=== PATIENT | female | born 1980 | race Caucasian/White ===

== ENCOUNTER 2017-07-25 04:50 | Emergency (ER) | payer SELFPAY ==
--- NOTE | 2017-07-25 04:56 | PDOC ---
History of Present Illness - General Chief Complaint: Injury Stated Complaint: LEFT ANKLE PAIN Time Seen by Provider: 07/25/17 04:55 Past History - Past Medical History Allergies/Adverse Reactions: Allergies Allergy/AdvReac Type Severity Reaction Status Date / Time No Known Allergies Allergy Verified 07/25/17 04:52 Home Medications: Ambulatory Orders Oxycodone HCl/Acetaminophen [Percocet 5/325 -] 1 tab PO Q6H #20 tablet MDD 4 Asthma: No Cancer: No Cardiac Disorders: No Diabetes: No HTN: No Seizures: No Thyroid Disease: No - Immunization History Td Vaccination: Yes Immunization Up to Date: Yes - Suicide/Smoking/Psychosocial Hx Smoking Status: Yes Smoking History: Current every day smoker Have you smoked in the past 12 months: Yes Number of Cigarettes Smoked Daily: 4 'Breaking Loose' booklet given: 09/29/14 Hx Alcohol Use: No Drug/Substance Use Hx: No Substance Use Type: None Hx Substance Use Treatment: No Medical Decision Making - Medical Decision Making 07/25/17 06:13 Patient Name: DORY SPIVEY THIS IS A PRELIMINARY REPORT FROM [facility] DATE OF SERVICE: 2017-07-25 05:26:17 IMAGES: 6 EXAM: XR LEFT ANKLE / XR LEFT FOOT HISTORY:Injury COMPARISON: None. FINDINGS:X-ray left ankle: The bones, joints and soft tissues are normal. X-ray left foot: The bones, joints and soft tissues are normal. IMPRESSION: Normal left ankle. Normal left foot *DC/Admit/Observation/Transfer Diagnosis at time of Disposition: High ankle sprain of left lower extremity, Sprain of foot, left - Discharge Dispostion Disposition: HOME Condition at time of disposition: Stable Admit: No - Prescriptions Prescriptions: Oxycodone HCl/Acetaminophen [Percocet 5/325 -] 1 tab PO Q6H #20 tablet MDD 4 - Referrals Referrals: Derek May MD [Staff Physician] - - Patient Instructions Printed Discharge Instructions: DI for Ankle Sprain - Post Discharge Activity Forms/Work/School Notes: Back to Work
[2017-07-25 05:01] VITALS: BP 117/67; PULSE 83; TEMP 98.2; BMI 41.9
[2017-07-25] MEDS ORDERED: IBUPROFEN 600 MG TABLET (FP) PO ONE ×2 (05:05→05:20)
== END 2017-07-25 06:24 | disposition home or self-care (01) ==
LOC: FER 04:50
DX: S93.402A Sprain of unspecified ligament of left ankle, initial encounter (principal); X58.XXXA Exposure to other specified factors, initial encounter; Y93.9 Activity, unspecified; Y92.9 Unspecified place or not applicable; S93.602A Unspecified sprain of left foot, initial encounter; F17.210 Nicotine dependence, cigarettes, uncomplicated
CPT/HCPCS: 73610-TC-LT; 73630-TC-LT; 99282-25

== ENCOUNTER 2017-08-19 03:31 | Emergency (ER) | payer BC ==
[2017-08-19 03:36] VITALS: BP 108/61; PULSE 96; TEMP 97.9; BMI 39.5
[2017-08-19] MEDS ORDERED: SODIUM CHLORIDE 1,000 ML IV STA (03:37)
[2017-08-19] MEDS ORDERED: KETOROLAC TROMETHAMINE 30 MG/1 ML VIAL IVPUSH ONE (03:37)
[2017-08-19] MEDS ORDERED: DEXAMETHASONE SOD PHOSPHATE 10 MG/1 ML VIAL IVPUSH ONE (03:38)
--- NOTE | 2017-08-19 03:43 | PDOC ---
History of Present Illness - General Chief Complaint: Sore Throat Stated Complaint: SORE THROAT/FEVER Time Seen by Provider: 08/19/17 03:35 - History of Present Illness Initial Comments: 08/19/17 03:39 37 F with no PMH presents to ER with 3 days of sore throat and fevers. She states that symptoms began with sore throat. She eventually developed fevers and chills. Today, she states that her throat has become so painful that it is difficult to swallow. She denies any difficulty breathing or sensation of throat closing up. However, she does state that her voice has become hoarse from coughing. Pt denies any other symptoms such as CP/SOB. Denies N/V/D/ abdominal pain. No known sick contacts. Past History - Past Medical History Allergies/Adverse Reactions: Allergies Allergy/AdvReac Type Severity Reaction Status Date / Time No Known Allergies Allergy Verified 07/25/17 04:52 Home Medications: Ambulatory Orders Amoxicillin - [Amoxicillin 500mg Capsule -] 500 mg PO BID #20 capsule 08/19/17 Asthma: No Cancer: No Cardiac Disorders: No COPD: Yes Diabetes: No HTN: No Seizures: No Thyroid Disease: No - Immunization History Td Vaccination: Yes Immunization Up to Date: Yes - Suicide/Smoking/Psychosocial Hx Smoking Status: Yes Smoking History: Current every day smoker Have you smoked in the past 12 months: Yes Number of Cigarettes Smoked Daily: 6 Information on smoking cessation initiated: Yes 'Breaking Loose' booklet given: 08/19/17 Hx Alcohol Use: No Drug/Substance Use Hx: No Substance Use Type: None Hx Substance Use Treatment: No Review of Systems - Review of Systems Comments:: 08/19/17 03:41 "GENERAL/CONSTITUTIONAL: +fevers and chills. HEAD, EYES, EARS, NOSE AND THROAT: + sore throat CARDIOVASCULAR: No chest pain or shortness of breath. RESPIRATORY: No cough, wheezing, or hemoptysis. GASTROINTESTINAL: No nausea, vomiting, diarrhea or constipation. GENITOURINARY: No dysuria, frequency, or change in urination. MUSCULOSKELETAL: No joint or muscle swelling or pain. No neck or back pain. SKIN: No rash NEUROLOGIC: No headache, vertigo, loss of consciousness, or change in strength/ sensation. ENDOCRINE: No increased thirst. No abnormal weight change. HEMATOLOGIC/LYMPHATIC: No anemia, easy bleeding, or history of blood clots. ALLERGIC/IMMUNOLOGIC: No hives or skin allergy. " *Physical Exam - Vital Signs Last Vital Signs Temp Pulse Resp BP Pulse Ox 97.9 F 96 H 14 108/61 97 08/19/17 03:32 08/19/17 03:32 08/19/17 03:32 08/19/17 03:32 08/19/17 03:32 - Physical Exam Comments: 08/19/17 03:42 "GENERAL: Awake, alert, and fully oriented, in no acute distress HEAD: No signs of trauma EYES: PERRLA, EOMI, sclera anicteric, conjunctiva clear ENT: TMs wnl, + bilateral tonsillar swelling with white exudates, NECK: Nontender, no stepoffs, Normal ROM, supple, + lymphadenopathy, JVD, or masses LUNGS: Breath sounds equal, clear to auscultation bilaterally. No wheezes, and no crackles HEART: Regular rate and rhythm, normal S1 and S2, no murmurs, rubs or gallops ABDOMEN: Soft, nontender, normoactive bowel sounds. No guarding, no rebound. No masses EXTREMITIES: Normal range of motion, no edema. No clubbing or cyanosis. No cords, erythema, or tenderness NEUROLOGICAL: Cranial nerves II through XII intact. 5/5 strength and sensation in all extremities, Normal speech, normal gait SKIN: Warm, Dry, normal turgor, no rashes or lesions noted. " Medical Decision Making - Medical Decision Making 08/19/17 03:42 37 F with sore throat, fevers x 3 days. Possible strep pharyngitis. Pt without uvular deviation or any other signs of peritonsillar abscess. No stridor to suggest epiglottitis. - Rapid strep + throat culture - IVF, toradol, decadron 08/19/17 05:37 Pt reassessed s/p steroids, IVF, and toradol. Now feeling significantly better. Rapid strep and throat culture sent, but pt does not wish to wait any longer for the results. Will hold off on abx for now, as this is likely viral pharyngitis. Will call pt if rapid strep returns positive. I discussed the physical exam findings, ancillary test results and final diagnoses with the patient. I answered all of the patient's questions. The patient was satisfied with the care received and felt comfortable with the discharge plan and treatment plan. The patient agrees to follow up with the primary care physician within 24-72 hours. 08/19/17 05:51 Rapid strep positive. Pt called and informed of results. Prescription for amoxicillin sent to pt's pharmacy. *DC/Admit/Observation/Transfer Diagnosis at time of Disposition: Pharyngitis - Discharge Dispostion Disposition: HOME Condition at time of disposition: Good - Prescriptions Prescriptions: Amoxicillin - [Amoxicillin 500mg Capsule -] 500 mg PO BID #20 capsule - Referrals Referrals: Shorty Serna MD [Staff Physician] - - Patient Instructions Printed Discharge Instructions: DI for Pharyngitis/Tonsillopharyngitis -- Adult Additional Instructions: Drink plenty of fluids to stay hydrated. Take motrin as needed for pain. We will call you if your strep test comes back positive. If you experience worsening pain, swelling, difficulty swallowing or breathing, or any other concerning symptoms, return to the ER immediately. Otherwise, follow up with your primary care doctor in 1 week for a check up. Call the number provided to make an appointment with ENT clinic, as you may need to have your tonsils removed. - Post Discharge Activity - Attestations Physician Attestion: 08/19/17 05:41 I, Dr. Khris Jeong MD, attest that this document has been prepared under my direction and personally reviewed by me in its entirety. I further attest, that it accurately reflects all work, treatment, procedures and medical decision -making performed by me.
[2017-08-19] MEDS ORDERED: ACETAMINOPHEN 500 MG TABLET (FP) PO ONE (05:11)
[2017-08-19] MEDS ORDERED: ACETAMINOPHEN 325 MG TABLET (FP) ONE (05:13)
== END 2017-08-19 05:44 | disposition home or self-care (01) ==
LOC: FER 03:31
PROC: 3E033GC Introduction of Other Therapeutic Substance into Peripheral Vein, Percutaneous Approach (ICD-10-PCS; principal; 2017-08-19)
PROC: 3E0333Z Introduction of Anti-inflammatory into Peripheral Vein, Percutaneous Approach (ICD-10-PCS; 2017-08-19)
PROC: 3E0337Z Introduction of Electrolytic and Water Balance Substance into Peripheral Vein, Percutaneous Approach (ICD-10-PCS; 2017-08-19)
DX: J02.9 Acute pharyngitis, unspecified (principal)
CPT/HCPCS: 87070; 87077; 87430; 99282-25

== ENCOUNTER 2021-09-16 19:30 | Emergency (ER) | payer BC, OTHER ==
[2021-09-16 19:46] VITALS: BP 125/78; PULSE 78; TEMP 98.1; BMI 37.1
[2021-09-16] MEDS ORDERED: KETOROLAC TROMETHAMINE 60 MG/2 ML VIAL IM ONE (20:40)
[2021-09-16] MEDS ORDERED: KETOROLAC TROMETHAMINE 60 MG/2 ML VIAL ONE (20:47)
== END 2021-09-16 20:58 | disposition home or self-care (01) ==
LOC: FER 19:30
PROC: 3E023GC Introduction of Other Therapeutic Substance into Muscle, Percutaneous Approach (ICD-10-PCS; principal; 2021-09-16)
DX: M79.604 Pain in right leg (principal); M79.605 Pain in left leg; M79.671 Pain in right foot; M79.672 Pain in left foot
CPT/HCPCS: 73590-TC-LT-FY; 73590-TC-RT-FY; 73610-TC-LT-FY; 73610-TC-RT-FY; 73630-TC-LT; 73630-TC-RT-FY; 99284-25

== ENCOUNTER 2022-05-07 03:57 | Day surgery (SDC) | payer OTHER ==
[2022-05-04 16:41] VITALS: BMI 40.3
[2022-05-07] MEDS ORDERED: ROCURONIUM BROMIDE 50 MG/5 ML SYRINGE ONE (07:37)
[2022-05-07] MEDS ORDERED: PROPOFOL 40 ML ONE ×2 (07:37→08:42)
[2022-05-07] MEDS ORDERED: MIDAZOLAM HCL 2 MG/2 ML SINGLE DOSE VIAL ONE (07:37)
[2022-05-07] MEDS ORDERED: SUCCINYLCHOLINE CHLORIDE 200 MG/10 ML SYRINGE ONE (07:37)
[2022-05-07] MEDS ORDERED: HYDROmorphone HCl 2 MG/ML VIAL ONE (07:37)
[2022-05-07] MEDS ORDERED: ACETAMINOPHEN INJECTION 100 ML IVPB ONE (07:52)
[2022-05-07] MEDS ORDERED: ceFAZolin SODIUM 1 GM VIAL IVPB ONE (08:45)
[2022-05-07] MEDS ORDERED: GLYCOPYRROLATE 0.2 MG/1 ML VIAL ONE ×2 (08:51→09:57)
[2022-05-07] MEDS ORDERED: OXYMETAZOLINE 0.05% NASAL SOLUTION 15 ML BOTTLE NS ONE (09:14)
[2022-05-07] MEDS ORDERED: EPINEPHrine/PF 1 MG/1 ML (1:1,000) AMPULE IM ONE (09:15)
[2022-05-07] MEDS ORDERED: PROPOFOL 20 ML ONE (09:56)
[2022-05-07] MEDS ORDERED: DEXAMETHASONE SOD PHOSPHATE 4 MG/1 ML VIAL ONE (09:57)
[2022-05-07] MEDS ORDERED: LIDOCAINE HCL/PF 2% SDV 5ML VIAL ONE (09:57)
[2022-05-07] MEDS ORDERED: ALBUTEROL SO4 HFA INHALER IH ONE (09:57)
[2022-05-07] MEDS ORDERED: MINERAL OIL/PETROLATUM,WHITE 3.5 GM TUBE ONE (09:57)
[2022-05-07] MEDS ORDERED: ceFAZolin SODIUM 1 GM VIAL ONE (09:57)
[2022-05-07] MEDS ORDERED: NEOSTIGMINE METHYLSULFATE 0.5 MG/ML - 10 ML MDV ONE (09:59)
[2022-05-07] MEDS ORDERED: oxyCODONE HCL 5 MG TABLET PO PRN (10:30)
[2022-05-07] MEDS ORDERED: LACTATED RINGERS SOLUTION 1,000 ML IV SCH (10:30)
[2022-05-07] MEDS ORDERED: ONDANSETRON 4 MG/2 ML VIAL IVPUSH PRN (10:30)
[2022-05-07] MEDS ORDERED: ONDANSETRON 4 MG/2 ML VIAL ONE (11:03)
[2022-05-07 13:47] VITALS: RESP 18
[2022-05-07 13:57] VITALS: BP 152/88; PULSE 58; TEMP 98.2
== END 2022-05-07 13:40 | disposition home or self-care (01) ==
LOC: JASU-SURG 03:57
PROVIDERS: ATTEND Otolaryngology
PROC: 099Q8ZZ Drainage of Right Maxillary Sinus, Via Natural or Artificial Opening Endoscopic (ICD-10-PCS; 2022-05-07)
PROC: 8E09XBZ Computer Assisted Procedure of Head and Neck Region (ICD-10-PCS; 2022-05-07)
PROC: 8E09XBZ Computer Assisted Procedure of Head and Neck Region (ICD-10-PCS; principal; 2022-05-07 08:00)
PROC: 099R8ZZ Drainage of Left Maxillary Sinus, Via Natural or Artificial Opening Endoscopic (ICD-10-PCS; 2022-05-07 08:00)
DX: J32.4 Chronic pansinusitis (principal); J33.8 Other polyp of sinus
CPT/HCPCS: 81025; 88304-TC; 88311-TC; 94760

== ENCOUNTER 2023-06-01 12:56 | Emergency (ER) | payer OTHER ==
[2023-06-01 13:10] VITALS: BP 98/53; PULSE 61; RESP 16; TEMP 98.3; BMI 37.1
[2023-06-01] MEDS ORDERED: SODIUM CHLORIDE 0.9% 500 ML INFUS.BAG IV ONE (14:10)
[2023-06-01] MEDS ORDERED: ACETAMINOPHEN 1000 MG/100 ML BAG IVPB ONE (14:10)
[2023-06-01] MEDS ORDERED: METOCLOPRAMIDE HCL INJECTION 10 MG/2 ML VIAL IVPB ONE (14:10)
[2023-06-01] MEDS ORDERED: LIDOCAINE 5% TOPICAL PATCH TP ONE (14:18)
[2023-06-01] MEDS ORDERED: METOCLOPRAMIDE HCL INJECTION 10 MG/2 ML VIAL ONE (14:20)
[2023-06-01] MEDS ORDERED: ACETAMINOPHEN INJECTION 100 ML IVPB ONE (14:20)
[2023-06-01] MEDS ORDERED: LIDOCAINE 5% TOPICAL PATCH ONE (14:21)
[2023-06-01 14:59] LABS: BASO % 0.4 % (0-2.0); EOS % 0.1 % (0-4.5); HEMATOCRIT 36.3 % (32.4-45.2); HEMOGLOBIN 11.8 GM/dL (10.7-15.3); LYMPH % 27.6 % (8-40); MCH 28.8 pg (25.7-33.7); MCHC 32.5 g/dl (32.0-36.0); MEAN CELL VOLUME 88.4 fl (80-96); MEAN PLT VOLUME 8.4 fl (7.5-11.1); NEUT % 63.9 % (42.8-82.8); PLATELET COUNT 253 10^3/uL (134-434); RBC 4.11 M/mm3 (3.60-5.2); RDW 14.4 % (11.6-15.6); WHITE BLOOD COUNT 8.2 K/mm3 (4.0-10.0)
[2023-06-01 15:26] LABS: POTASSIUM 3.8 mmol/L (3.5-5.1)
[2023-06-01 15:28] LABS: ALBUMIN 3.3 g/dl (3.4-5.0); BLOOD UREA NITROGEN 14.9 mg/dL (7-18); CALCIUM 8.7 mg/dL (8.5-10.1)
[2023-06-01 15:31] LABS: CREATININE 0.6 mg/dL (0.55-1.3)
[2023-06-01 15:33] LABS: BILIRUBIN,TOTAL 0.2 mg/dL (0.2-1); TOT PROT 6.3 g/dl (6.4-8.2)
[2023-06-01] MEDS ORDERED: KETOROLAC TROMETHAMINE 15 MG/ML VIAL IVPUSH ONE (15:39)
[2023-06-01] MEDS ORDERED: KETOROLAC TROMETHAMINE 15 MG/ML VIAL ONE (15:41)
[2023-06-01] MEDS ORDERED: LIDOCAINE PATCH REMOVAL MC SCH (22:00)
== END 2023-06-01 16:13 | disposition home or self-care (01) ==
LOC: JER 12:56
PROC: 3E033NZ Introduction of Analgesics, Hypnotics, Sedatives into Peripheral Vein, Percutaneous Approach (ICD-10-PCS; principal; 2023-06-01)
PROC: 3E033GC Introduction of Other Therapeutic Substance into Peripheral Vein, Percutaneous Approach (ICD-10-PCS; 2023-06-01)
PROC: 3E0333Z Introduction of Anti-inflammatory into Peripheral Vein, Percutaneous Approach (ICD-10-PCS; 2023-06-01)
DX: R51.9 Headache, unspecified (principal); R11.0 Nausea; Z20.822 Contact with and (suspected) exposure to COVID-19
CPT/HCPCS: 0241U-QW; 36415; 80053; 84703; 85025; 93005; 93010; 99284-25

== ENCOUNTER 2024-01-10 21:05 | Inpatient (IN) | payer OTHER ==
[2024-01-10 22:51] VITALS: BMI 37.1
[2024-01-10] MEDS ORDERED: MAG HYDROX/AL HYDROX/SIMETH 30 ML UNIT-DOSE CUP PO PRN (23:58)
[2024-01-10] MEDS ORDERED: P-EPHED 60MG/TRIPROLIDI 2.5MG TABLET PO PRN (23:58)
[2024-01-10] MEDS ORDERED: guaiFENesin 600 MG TABLET.ER (FP) PO PRN (23:58)
[2024-01-10] MEDS ORDERED: IBUPROFEN 400 MG TABLET (FP) PO PRN (23:58)
[2024-01-10] MEDS ORDERED: POLYETHYLENE GLYCOL (HEALTHYLAX) 3350 17 GM PACKET PO PRN (23:58)
[2024-01-10] MEDS ORDERED: BISMUTH SUBSALICYLATE 524 MG/30 ML PO PRN (23:58)
[2024-01-10] MEDS ORDERED: ACETAMINOPHEN 325 MG TABLET (FP) PO PRN (23:58)
[2024-01-10] MEDS ORDERED: LOPERAMIDE HCL 2 MG CAPSULE PO PRN (23:58)
[2024-01-10] MEDS ORDERED: MAGNESIUM HYDROX 2400MG/30ML ORAL SUSPENSION 30 ML CUP PO PRN (23:58)
[2024-01-10] MEDS ORDERED: DICYCLOMINE HCL 10 MG CAPSULE PO PRN (23:58)
[2024-01-10] MEDS ORDERED: NALOXONE HCL 0.4 MG/ML VIAL IM PRN (23:58)
[2024-01-10] MEDS ORDERED: BENZOCAINE/MENTHOL (CHLORASEPTIC ) LOZENGE MM PRN (23:58)
[2024-01-10] MEDS ORDERED: ONDANSETRON *ODT* 4 MG TABLET SL PRN (23:58)
[2024-01-10] MEDS ORDERED: NALOXONE HCL (KLOXXADO) 8 MG SPRAY NS PRN (23:58)
[2024-01-10] MEDS ORDERED: BENZONATATE 200 MG CAPSULE PO PRN (23:58)
[2024-01-11] MEDS: BUPRENORPHINE/NALOXONE 2 MG/0.5 MG FILM PACKET SL ONE (00:55)
[2024-01-11] MEDS ORDERED: BUPRENORPHINE/NALOXONE 2 MG/0.5 MG FILM PACKET ONE (00:58)
[2024-01-11] MEDS ORDERED: METHOCARBAMOL 500 MG TABLET ONE (00:59)
[2024-01-11] MEDS: METHOCARBAMOL 500 MG TABLET PO PRN (01:08)
[2024-01-11] MEDS: IBUPROFEN 600 MG TABLET (FP) PO PRN (03:09)
[2024-01-11] MEDS: NICOTINE POLACRILEX 2 MG GUM BUC PRN (03:51)
[2024-01-11] MEDS: BUPRENORPHINE/NALOXONE 4 MG/1 MG FILM PACKET SL SCH (05:28)
[2024-01-11] MEDS: PRENATAL VITAMINS W/ FOLIC ACID TABLET (FP) PO SCH (10:29)
[2024-01-11] MEDS: hydrOXYzine PAMOATE 25 MG CAPSULE (FP) PO PRN (10:31)
[2024-01-11 14:36] LABS: HEMATOCRIT 39.6 % (32.4-45.2); MCH 28.7 pg (25.7-33.7); MCHC 32.7 g/dl (32.0-36.0); MEAN CELL VOLUME 87.7 fl (80-96); MEAN PLT VOLUME 8.4 fl (7.5-11.1); PLATELET COUNT 323 10^3/uL (134-434); RBC 4.52 M/mm3 (3.60-5.2); RDW 14.9 % (11.6-15.6); WHITE BLOOD COUNT 11.1 K/mm3 (4.0-10.0)
[2024-01-11] MEDS: cloNIDine HCL 0.1 MG TABLET PO PRN (14:53)
[2024-01-11 15:07] LABS: POTASSIUM 3.7 mmol/L (3.5-5.1)
[2024-01-11 15:25] LABS: CALCIUM 8.9 mg/dL (8.5-10.1)
[2024-01-11 15:26] LABS: ALBUMIN 3.5 g/dl (3.4-5.0); BLOOD UREA NITROGEN 13.7 mg/dL (7-18)
[2024-01-11 15:29] LABS: CREATININE 0.6 mg/dL (0.55-1.3)
[2024-01-11 15:31] LABS: BILIRUBIN,TOTAL 0.5 mg/dL (0.2-1); TOT PROT 6.5 g/dl (6.4-8.2)
[2024-01-11 21:11] VITALS: RESP 16
[2024-01-11] MEDS: MELATONIN 5 MG TABLETS PO SCH (22:25)
[2024-01-11] MEDS: THIAMINE HCL 100 MG TABLET (FP) PO SCH (22:25)
[2024-01-12] MEDS: BUPRENORPHINE/NALOXONE 8 MG/2 MG FILM PACKET SL ONE (05:58)
[2024-01-12 07:06] VITALS: TEMP 97.7
[2024-01-12 09:41] VITALS: BP 127/80; PULSE 66
== END 2024-01-12 09:44 | disposition home or self-care (01) | DRG 897 ==
LOC: YASAS 21:05 → Y6N 01-11 01:31
PROVIDERS: ADMIT Allergy & Immunology; ATTEND Surgery
PROC: HZ2ZZZZ Detoxification Services for Substance Abuse Treatment (ICD-10-PCS; principal; 2024-01-11)
DX: F11.23 Opioid dependence with withdrawal (principal); F12.20 Cannabis dependence, uncomplicated; F17.210 Nicotine dependence, cigarettes, uncomplicated
CPT/HCPCS: 36415; 80053; 80305; 80307; 81025; 85027; 86780; 93005; 93010